=== PATIENT | male | born 1955 | race Caucasian/White ===

== ENCOUNTER → 2017-10-17 | Emergency (ER) | payer OTHER ==
[~2017-10-17] VITALS: Ht 170.2 cm; Wt 70.3 kg
== END | disposition home or self-care (01) ==
LOC: ER 03:37
DX: R53.81 Other malaise (principal); T51.8X1A Toxic effect of other alcohols, accidental (unintentional), initial encounter; Y92.89 Other specified places as the place of occurrence of the external cause; K29.60 Other gastritis without bleeding